=== PATIENT | male | born 1995 | race African-American/Black ===

== ENCOUNTER 2017-03-27 16:13 | Emergency (ER) | payer OTHER ==
[~2017-03-27] VITALS: Ht 177.8 cm; Wt 76.2 kg
[~2017-03-27 16:13] MED LIST: NORCO 5-325 TA1 EACH PO
[2017-03-27 19:03] VITALS: BP 126/67
== END 2017-03-27 19:05 | disposition home or self-care (01) ==
LOC: ER 16:13
DX: S01.511A Laceration without foreign body of lip, initial encounter (principal); S02.2XXA Fracture of nasal bones, initial encounter for closed fracture; S06.899A Other specified intracranial injury with loss of consciousness of unspecified duration, initial encounter; W22.8XXA Striking against or struck by other objects, initial encounter; Y93.61 Activity, american tackle football; Y92.89 Other specified places as the place of occurrence of the external cause; Y99.8 Other external cause status